=== PATIENT | female | born 1960 | race Two or more races ===

== ENCOUNTER 2021-09-17 01:26 | Emergency (ER) | payer OTHER ==
[~2021-09-17] VITALS: Ht 154.9 cm; Wt 86.2 kg
[2021-09-17 02:43] VITALS: BP 210/103
[2021-09-17 03:51] LABS: CLARITY,URINE CLEAR (Clear); COLOR,URINE YELLOW (Yellow); GLUCOSE, URINE NEGATIVE (Neg); KETONES,URINE TRACE mg/dl (Neg); LEUKOCYTE ESTERASE ,URINE NEGATIVE (Neg); NITRITES, URINE NEGATIVE (Neg); OCCULT BLOOD,URINE TRACE-INTACT (Neg); PROTEIN,URINE NEGATIVE (Neg); UROBILINOGEN,URINE 0.2 E.U/dL (0.2-1.0)
[2021-09-17 03:56] LABS: UA COLLECTION TYPE CLN CATCH MIDSTREAM
[2021-09-17 03:57] LABS: BACTERIA,URINE NONE SEEN /HPF (Neg); SQUAMOUS EPITHELIAL CELL,UR FEW /LPF (FEW); WBC,URINE NONE SEEN /HPF (0-4)
[2021-09-17 04:00] LABS: URINE HCG NEGATIVE (NEG)
== END 2021-09-17 06:47 | disposition left against medical advice (07) ==
LOC: ER 01:26
DX: R10.9 Unspecified abdominal pain (principal); Z53.21 Procedure and treatment not carried out due to patient leaving prior to being seen by health care provider
CPT/HCPCS: 81001; 81025